=== PATIENT | male | born 1980 | race Caucasian/White ===

== ENCOUNTER 2017-08-20 18:25 | Emergency (ER) | payer MEDICAID ==
[~2017-08-20] VITALS: Ht 182.9 cm; Wt 113.4 kg
[2017-08-20 18:58] VITALS: BP 148/96
== END 2017-08-20 19:28 | disposition home or self-care (01) ==
LOC: ER 18:25
DX: M94.0 Chondrocostal junction syndrome [Tietze] (principal)
CPT/HCPCS: 71046; 71101